=== PATIENT | female | born 1950 | race Caucasian/White ===

== ENCOUNTER 2017-06-24 09:15 | Inpatient (IN) | payer BC ==
[~2017-06-24] VITALS: Ht 172.7 cm; Wt 64.7 kg
[2017-07-30] MEDS ORDERED: LEVO125T4 PO (09:54)
[2017-07-30] MEDS ORDERED: FOSA70TA PO (09:54)
[2017-08-10] MEDS ORDERED: LACTATED RINGER'S 1000 ML IV PRN (06:15)
[2017-08-10] MEDS ORDERED: POVIDONE IODINE 5% (ANTISEPSIS KIT) 4 APPLICATIONS EACH NARE PRN (06:30)
[2017-08-10] MEDS ORDERED: CHLORHEXIDINE GLUCONATE 4% SOLN 120 ML BTL TOPICAL SCH (06:30)
[2017-08-10] MEDS ORDERED: VANCOMYCIN 1000 MG/NS 250 ML (for <70 kg) IV SCH ×2 (06:30)
[2017-08-10] MEDS ORDERED: CHLORHEXIDINE GLUCONATE 2 % 1 PACK (2 CLOTHS) TOPICAL PRN (06:30)
[2017-08-10] MEDS ORDERED: INSULIN HUMAN REGULAR 1,000 UNITS/10 ML VIAL SQ PRN (06:30)
[2017-08-10] MEDS ORDERED: ceFAZolin 2 GM PREMIX 50 ML IV SCH (06:30)
[2017-08-10] MEDS ORDERED: METOPROLOL TARTRATE 25 MG TAB PO PRN (06:30)
[2017-08-10] MEDS ORDERED: SODIUM CHLORID 0.9% 500 ML IV PRN (06:30)
[2017-08-10] MEDS ORDERED: ACETAMINOPHEN 1000 MG/100 ML 100 ML IV ONE (06:33)
[2017-08-10] MEDS ORDERED: GENTAMICIN SULFATE 80 MG/2 ML VIAL ONE (07:41)
[2017-08-10] MEDS ORDERED: CALCTAB19 PO (07:59)
[2017-08-10] MEDS ORDERED: HYDR-3583 PO (07:59)
[2017-08-10] MEDS ORDERED: XARE10TA PO (07:59)
[2017-08-10] MEDS ORDERED: ASPI-146 PO (07:59)
[2017-08-10] MEDS ORDERED: WALKER WHEELS/F1 MIS (08:00)
[2017-08-10] MEDS ORDERED: DEXAMETHASONE SOD PHOS 4 MG/ML VIAL ONE (08:27)
[2017-08-10] MEDS ORDERED: DEXAMETHASONE SOD PHOS 20 MG/5 ML VIAL IV SCH (08:30)
[2017-08-10] MEDS ORDERED: TRANEXAMIC ACID INJ 970 MG in SODIUM CHLORIDE 0.9% INJ 100 ML IV SCH (08:30)
[2017-08-10] MEDS ORDERED: EXPAREL PERI-ARTICULAR INJECTION (TOTAL VOL. 60 ML) P-ARTICULR SCH ×2 (08:30)
[2017-08-10] MEDS ORDERED: TRANEXAMIC ACID INJ 1,000 MG in SODIUM CHLORIDE 0.9% INJ 100 ML IV ONE (09:30)
[2017-08-10] MEDS: LACTATED RINGER'S 1000 ML INJ 1,000 ML IV SCH ×2 (10:49→19:41)
--- NOTE | 2017-08-10 10:53 | PD.OP ---
cc: Eric Johnston MD Operative Report Date of Surgery: Aug 10, 2017 Preoperative Diagnosis: Severe left hip osteoarthritis Postoperative Diagnosis: Procedure: Left total hip arthroplasty by anterior approach Surgeon: Eric Johnston Electronics Specialist(s): ROBBIE Montgomery PA-C The surgical procedure was assisted by my physician assistant associate professor. My P.A. presence was necessary throughout this case for the manipulation and positioning of the surgical extremity. My P.A. was assisting me throughout the duration of this procedure. The skill set of a physician assistant associate professor was medically necessary to complete this procedure. During the surgical case the surgical services director was working at the back table and the physician assistant associate professor was directly assisting me. Operation and Findings: PLAN OF ACTIVITY Weight bear as tolerated. DRAINS: 7-mm JUSTUS drain. IMPLANTS USED DePuy Corail size [13] collared stem with a size [54] [place] Gription cup, [54 /36] Altrx poly liner, and a [36+5] ceramic Biolox ceramic head. DETAILS OF PROCEDURE: This patient has a long history of hip pain. Patient was found to have severe osteoarthritis. The patient had radiographic evidence of joint space narrowing with [id number] arthritis and osteophytes around the acetabulum as well as the femoral head. There was also some cystic changes. The patient failed conservative treatment with pain medications, anti-inflammatories, physical therapy, assistive devices including a cane, as well as therapeutic injection of the hip. Patient's hip arthritis was limiting his ability to ambulate and perform activities of daily living. The patient wished to proceed with surgery and informed consent was obtained. Operative site was marked. I discussed both posterior approach and anterior approach with the patient and decision was made for anterior approach. Patient was brought to OR and placed on OR table. IV sedation and general anesthesia was administered by anesthesiologist. Patient positioned on a Martina table and was given IV antibiotics. Time-out procedure was performed. The hip and thigh were prepped with alcohol followed by Hibiclens. The thigh was draped in the usual sterile fashion. Clean Air Suite was used for this procedure. The procedure began with a 5-inch incision over the anterolateral thigh. Subcutaneous tissue was dissected with Bovie. The fascia over the tensa fasciae latae was incised. Care was taken to avoid injury to the lateral femoral cutaneous nerve. The tensor muscle was retracted laterally. Sartorius was retracted medially. Retractors were now placed. The reflected head of the rectus is now elevated. A capsulotomy was performed over the anterior head capsule. Sutures were placed to help retract the capsule. At this point the femoral head and neck were identified. With soft tissue protected, oscillating saw was used to make a cut through the femoral neck, the femoral head was now removed. At this point attention was turned to preparation of the acetabulum. The labrum was excised. The acetabulum was sequentially reamed up to size [54]. A [place] cup was now placed. Fluoroscopy was used to aid in identification of appropriate version. Cup was fully impacted and found to have excellent fit. Hole eliminator was now placed. The liner was now impacted into the cup. At this point the hip was externally rotated. A hook was placed around the proximal femur. The capsule was released off the lateral and medial femur. The hip was now extended and adducted. Retractors were placed around the proximal femur to allow for exposure. A box osteotome was used to remove the lateral cortex of the femoral neck. A broach was used to help lateralize the prosthesis. Canal finder was used to create a path down the canal. Next, the canal was sequentially broached up to size [13]. This was found to be an excellent fit. Calcar planer was placed. A standard head was placed, and the hip was reduced. The hip was found to have excellent stability with good range of motion. The leg lengths were measured under fluoroscopy and found to be equal compared to preoperatively. Trial broach was removed. The Corail stem was opened. Stem was fully impacted into the proximal femur in appropriate version. The femoral head was placed. The hip was again reduced. Fluoroscopy confirmed excellent alignment of prosthesis. The wound was thoroughly irrigated and capsule was closed with #1 Vicryl. The fascia over the tensor fasciae muscle was closed with #1 Vicryl, subcutaneous tissue was closed with 3-0 Vicryl and the skin was closed with angie and Dermabond skin closure. The capsule layers, muscle, and subcutaneous tissue were injected with a mixture of saline and bupivicaine. Dressings were applied. The patient was transferred to Recovery Room in stable condition. Eric Johnston MD Aug 10, 2017 10:53
[2017-08-10] MEDS ORDERED: Post-op Orders (for Pharmacy) XX ONE (11:00)
[2017-08-10] MEDS ORDERED: ONDANSETRON HCL 4 MG/2 ML VIAL IVP PRN (11:00)
[2017-08-10] MEDS ORDERED: NALOXONE HCL 0.4 MG/ML AMP IV PUSH PRN (11:00)
[2017-08-10] MEDS ORDERED: MORPHINE SULFATE 4 MG/ML INJ IV PUSH PRN (11:00)
[2017-08-10] MEDS ORDERED: ACETAMINOPHEN/HYDROcodone 325 MG/7.5 MG TAB PO PRN (11:00)
[2017-08-10] MEDS ORDERED: DO NOT ADM ANY ANTICOAGULANT DRUGS PRN (11:19)
[2017-08-10] MEDS ORDERED: *ONDANSETRON 4 MG VIAL PERIprocedural Use ONLY ONE (11:24)
[2017-08-10] MEDS ORDERED: *PROMETHAZINE 25 MG/ML VIAL PERIprocedural use ONLY ONE (11:31)
[2017-08-10] MEDS ORDERED: *morphine SULFATE 8 MG/ML PERIprocedure ONLY ONE (11:52)
[2017-08-10] MEDS ORDERED: MIDAZOLAM HCL 2 MG/2 ML VIAL IV ONE (12:00)
[2017-08-10] MEDS ORDERED: NEOSTIGMINE 5 MG/5 ML SYRINGE IV PUSH ONE (12:00)
[2017-08-10] MEDS ORDERED: DEXAMETHASONE SOD PHOS 4 MG/ML VIAL IV ONE (12:00)
[2017-08-10] MEDS ORDERED: PROPOFOL 200 MG/20 ML AMP IV ONE (12:00)
[2017-08-10] MEDS ORDERED: ESMOLOL HCL 100 MG/10 ML VIAL IV ONE (12:00)
[2017-08-10] MEDS: KETOROLAC TROMETHAMINE 30 MG/ML (IVP) VIAL IV PUSH SCH ×2 (12:00→23:51)
[2017-08-10] MEDS ORDERED: ONDANSETRON HCL 4 MG/2 ML VIAL IV ONE (12:00)
[2017-08-10] MEDS ORDERED: ROCURONIUM INJ 50 MG/5 ML SYRINGE IV PUSH ONE (12:00)
[2017-08-10] MEDS ORDERED: LIDOCAINE HCL 1% PF 5 ML SYRINGE OTHER ONE (12:00)
[2017-08-10] MEDS ORDERED: METOCLOPRAMIDE HCL 10 MG/2 ML VIAL ONE (12:24)
[2017-08-10 13:00] VITALS: BP 110/59; PULSE 60; RESP 18; TEMP 96.7; O2SAT 100
--- NOTE | 2017-08-10 14:03 | RADRPT ---
EXAM DATE/TIME: 08/10/2017 12:07 [facility] COMPARISON: No previous studies available for comparison. INDICATIONS : Post op left hip replacement. MEDICAL HISTORY : None. SURGICAL HISTORY : None. ENCOUNTER: Initial ACUITY: 1 day PAIN SCORE: 4/10 LOCATION: Left hip FINDINGS: Postsurgical features of left hip arthroplasty. Hypoplastic components are in anatomic alignment and well-positioned. No acute bony fracture is demonstrated. Remaining osseous structures are intact. Pos tsurgical soft tissue changes. CONCLUSION: 1. Status post left hip arthroplasty in anatomic alignment without acute fracture. Po Ibanez MD on August 10, 2017 at 14:00 Board Certified Radiologist. This report was verified electronically.
[2017-08-10] MEDS: ceFAZolin 2 GM PREMIX 50 ML IV SCH ×2 (14:35→21:47)
--- NOTE | 2017-08-10 15:55 | RADRPT ---
EXAM DATE/TIME: 08/10/2017 09:16 [facility] COMPARISON: No previous studies available for comparison. INDICATIONS : Left total hip arthroplasty. MEDICAL HISTORY : Unobtainable. SURGICAL HISTORY : Unobtainable. ENCOUNTER: Initial ACUITY: 1 day PAIN SCORE: Non-responsive. LOCATION: Left hip FINDINGS: A two view examination of the left hip was performed. Post surgical changes are noted following left hip replacement. Acetabular and femoral components are well seated and in satisfactory alignment. There are no acute bony abnormalities. CONCLUSION: Satisfactory postoperative appearance of the left hip status post replacement. Frank Escoto MD on August 10, 2017 at 15:53 Board Certified Radiologist. This report was verified electronically.
[2017-08-10] MEDS ORDERED: METOCLOPRAMIDE HCL 10 MG/2 ML VIAL IV PUSH PRN (18:30)
[2017-08-10 19:35] VITALS: BP 98/50; PULSE 63; RESP 18; TEMP 96.7; O2SAT 93
[2017-08-10] MEDS: VANCOMYCIN INJ 1,000 MG in SODIUM CHLOR 0.9% 250 ML INJ 250 ML IV SCH (19:40)
[2017-08-10] MEDS: ACETAMINOPHEN/HYDROcodone 325 MG/10 MG TAB PO PRN (19:41)
[2017-08-10] MEDS: CALCIUM/VITAMIN D 250 MG/125 U TAB PO SCH (19:41)
[2017-08-10] MEDS ORDERED: MAGNESIUM HYDROXIDE SUSP 30 ML CUP PO PRN (23:45)
[2017-08-11 00:06] VITALS: O2SAT 94
[2017-08-11] MEDS: LACTATED RINGER'S 1000 ML INJ 1,000 ML IV SCH (00:39)
[2017-08-11 01:03] VITALS: BP 103/54; PULSE 65; RESP 17; TEMP 96.7; O2SAT 92
[2017-08-11] MEDS: ceFAZolin 2 GM PREMIX 50 ML IV SCH (03:08)
[2017-08-11 04:09] VITALS: BP 86/41; PULSE 70; RESP 18; TEMP 97.1; O2SAT 94
[2017-08-11 04:36] VITALS: BP_SYST 101; BP_SYST 88; BP_DIAS 42; BP_DIAS 45
[2017-08-11] MEDS ORDERED: LEVOTHYROXINE SODIUM 125 MCG TAB PO SCH (06:00)
--- NOTE | 2017-08-11 06:46 | PD.ORT.PN ---
Subjective Subjective Remarks POD 1 s/p left anterior ANISH doing well. reports no pain. states out of bed with walker to bathroom multiple times Objective Vitals Vital Signs Date Time Temp Pulse Resp B/P (MAP) Pulse Ox O2 Delivery O2 Flow Rate FiO2 08/11/17 04:36 88/42 (57) 101/45 (63) 08/11/17 04:09 97.1 70 18 86/41 (56) 94 08/11/17 01:03 96.7 65 17 103/54 (70) 92 08/11/17 00:06 94 Nasal Cannula 2.00 08/10/17 19:35 96.7 63 18 98/50 (66) 93 08/10/17 13:37 Nasal Cannula 2.00 08/10/17 13:05 63 16 109/56 (73) 100 Nasal Cannula 2 08/10/17 13:00 96.7 60 18 110/59 (76) 100 08/10/17 12:45 65 16 109/56 (73) 100 Nasal Cannula 2 08/10/17 12:30 51 16 108/57 (74) 100 Nasal Cannula 2 08/10/17 12:15 73 16 121/58 (79) 100 Nasal Cannula 2 08/10/17 12:00 59 16 112/53 (72) 95 Nasal Cannula 2 08/10/17 11:45 71 16 100/57 (71) 100 Nasal Cannula 2 08/10/17 11:30 83 16 97/53 (68) 96 Nasal Cannula 2 08/10/17 11:20 97.7 91 16 102/67 (79) 100 Nasal Cannula 2 I/O 08/10/17 08/10/17 08/10/17 08/11/17 08/11/17 08/11/17 07:00 15:00 23:00 07:00 15:00 23:00 Intake Total 2000 ml 480 ml 480 ml Output Total 620 ml 90 ml Balance 1380 ml 390 ml 480 ml Intake Oral 480 ml 480 ml IV Total 2000 ml Output Drainage Total 120 ml 90 ml Estimated Blood Loss 500 ml # Voids 3 3 # Bowel Movements 0 0 Imaging Last 24 hours Impressions Hip and Pelvis X-Ray 08/10/17 1049 Signed Impressions: Service Date/Time: Thursday, August 10, 2017 12:07 - CONCLUSION: 1. Status post left hip arthroplasty in anatomic alignment without acute fracture. Po Ibanez MD Objective Remarks LLE: dressings clean and dry. intact. NVI. +drain Assessment & Plan Assessment and Plan 1) Left Anterior ANISH - POD 1 -WBAT -DC drain today -daily dressing changes with Primapore -will begin adding xeroform POd 10 -DC home today with HHC -f/u with Orr or PA in 2 weeks -DVT prophylaxis with xarelto and convert to Aspirin in 2 weeks Ziggy Rome/Bond Writer RAMÍREZ Aug 11, 2017 06:46
--- NOTE | 2017-08-11 06:47 | HHI.FF ---
Face to Face Verification Diagnosis: (1) Status post left hip replacement Physical Therapy Gait training Hip: Total hip, Protocol: Left, Progress to weight bearing Left LE Weight Bearing: WB as tolerated Nursing Nursing: Dressing changes Dressing Changes: Daily dressing change, Coverderm/Primapore (begin adding primapore POD 10) I have seen patient Taya Pimentel on 08/11/17. My clinical findings support the need for the requested home health care services because: Ltd mobility - disease progression I certify that my clinical findings support that this patient is homebound because: Post-op weakness Ziggy Rome/Auto Washer PA Aug 11, 2017 06:47
[2017-08-11 07:38] LABS: HEMATOCRIT 26.1 % (35.0-46.0); REVIEW FLAG FINAL
[2017-08-11] MEDS: ACETAMINOPHEN/HYDROcodone 325 MG/10 MG TAB PO PRN ×2 (07:47→12:50)
[2017-08-11] MEDS: VANCOMYCIN INJ 1,000 MG in SODIUM CHLOR 0.9% 250 ML INJ 250 ML IV SCH (07:47)
[2017-08-11] MEDS: CALCIUM/VITAMIN D 250 MG/125 U TAB PO SCH (07:47)
--- NOTE | 2017-08-11 07:47 | HHI.DS ---
Discharge Summary Admission Date Aug 10, 2017 at 05:53 Discharge Date: Aug 11, 2017 Admitting Diagnosis Left Hip OA Diagnosis: (1) Status post left hip replacement Diagnosis: Principal ICD Codes: Z96.642 - Presence of left artificial hip joint Procedures Left Anterior ANISH CBC/BMP: 08/11/17 0715 Significant Findings Laboratory Tests Test 08/11/17 07:15 Hemoglobin 9.1 GM/DL (11.6-15.3) Hematocrit 26.1 % (35.0-46.0) PE at Discharge LLE: dressings clean and dry. intact. NVI. +drain Hospital Course Patient admitted from outpatient basis for elective left total hip arthroplasty. Patient tolerated the procedure well. Admitted to . Patient was out of bed POD 0 wtih therapy and ambulating with walker to bathroom with minimal difficulty. Patient was noted to have a low blood pressure. On POD 1 patient was hemodynamically stable, pain controlled, doing well with therapy and fit for discharge home with [facility]. She will be weight bearing as tolerated, perform daily dressing changes with Primapore and begin adding Xeroform on POD 10. She will follow up with Dr Orr or his PA in 2 weeks Pt Condition on Discharge: Good Discharge Disposition: Disch w/ Home Health Serv Discharge Instructions Diet Instructions: As Tolerated, No Restrictions Activities You Can Perform: Full Weight Bearing Follow up Referrals: Orthopedics - 2 Weeks @ [facility] with Eric Orr MD New Medications: Aspirin DR (Ecotrin Regular Strength) 325 Mg Tabdr 325 MG PO DAILY, #14 TAB 0 Refills Calcium Carbonate-Vitamin D (Calcium 600+D 200) 600-200 Mg-Unit Tab 1 TAB PO BID for Nutritional Supplement, #90 TAB 0 Refills Hydrocodone-Acetaminophen (Hydrocodone-Acetaminophen) 10-325 mg Tab 1 TAB PO Q4H PRN for PAIN, #60 TAB 0 Refills Rivaroxaban (Xarelto) 10 Mg Tab 10 MG PO DAILY for Blood Clot Prevention, #14 TAB 0 Refills Walker with Front Wheels (Walker with Front Wheels) 1 Mis Mis EA .ROUTE DIRECTED, #1 0 Refills Ziggy Rome PA/Business Project Manager PA Aug 11, 2017 07:47
[2017-08-11 08:00] VITALS: BP 103/46; PULSE 73; RESP 18; TEMP 95.6; O2SAT 98
[2017-08-11] MEDS ORDERED: ENOXAPARIN SODIUM 40 MG/0.4 ML SYRINGE SQ SCH (10:00)
[2017-08-11] MEDS: KETOROLAC TROMETHAMINE 30 MG/ML (IVP) VIAL IV PUSH SCH (11:44)
[2017-08-11 12:00] VITALS: BP 96/43; PULSE 72; RESP 18; TEMP 96.1; O2SAT 92; O2SAT 93
[2017-08-11] MEDS ORDERED: DOCUSATE SODIUM 100 MG CAP PO SCH (21:00)
== END 2017-08-11 15:39 | disposition home health service (06) | DRG 470 ==
LOC: HSDI 08-10 05:53 → N06A 08-10 13:32
PROVIDERS: ADMIT Orthopaedic Surgery Orthopaedic Trauma; ATTEND Orthopaedic Surgery Orthopaedic Trauma
PROC: 0SRB04A Replacement of Left Hip Joint with Ceramic on Polyethylene Synthetic Substitute, Uncemented, Open Approach (ICD-10-PCS; principal; 2017-08-10 08:42)
DX: M16.12 Unilateral primary osteoarthritis, left hip (principal); E03.9 Hypothyroidism, unspecified; M81.0 Age-related osteoporosis without current pathological fracture; Z87.891 Personal history of nicotine dependence; Z85.3 Personal history of malignant neoplasm of breast
CPT/HCPCS: 73501; 73502; 76000; 85014; 85018; 86850; 86900; 86901; C9290; J0131; J0690; J1100; J1580; J1650; J1885; J2250; J2270; J2405; J2550; J2710; J2765; J3010; J3370; J7050; J7120

== ENCOUNTER → 2017-07-30 | Outpatient (CLI) | payer BC ==
[~2017-07-30] MED LIST: ASPI-146 PO; CALCTAB19 PO; FOSA70TA PO; HYDR-3583 PO; LEVO125T4 PO; WALKER WHEELS/F1 MIS; XARE10TA PO
== END ==
LOC: CPRE 09:07
PROVIDERS: ATTEND Orthopaedic Surgery Orthopaedic Trauma
DX: Z01.810 Encounter for preprocedural cardiovascular examination (principal); Z01.811 Encounter for preprocedural respiratory examination; Z01.812 Encounter for preprocedural laboratory examination; Z01.818 Encounter for other preprocedural examination; Z13.9 Encounter for screening, unspecified; Z79.01 Long term (current) use of anticoagulants; Z96.60 Presence of unspecified orthopedic joint implant; M79.609 Pain in unspecified limb